=== PATIENT | female | born 2000 | race American Indian/Alaskan Native ===

== ENCOUNTER 2020-10-25 21:03 | Emergency (ER) | payer OTHER ==
[2020-10-25] MEDS ORDERED: ACETAMINOPHEN 325 MG TAB PO ONE (23:21)
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
[2020-10-26 02:57] VITALS: BP 147/92
== END 2020-10-26 02:58 | disposition home or self-care (01) ==
LOC: ED 21:03
DX: T59.811A Toxic effect of smoke, accidental (unintentional), initial encounter (principal); Y92.89 Other specified places as the place of occurrence of the external cause
CPT/HCPCS: 36415; 82374; 82375; 99283